=== PATIENT | female | born 1955 | race Caucasian/White ===

== ENCOUNTER 2017-11-21 08:01 | Day surgery (SDC) | payer BC | END 2017-11-22 22:41 | disposition home or self-care (01) | LOC: MOI US 08:01 | PROC: 0HBT3ZX Excision of Right Breast, Percutaneous Approach, Diagnostic (ICD-10-PCS; principal; 2017-11-21) | DX: N60.01 Solitary cyst of right breast (principal) | CPT/HCPCS: 19083; 77065; 88305 ==

== ENCOUNTER → 2017-12-11 | Outpatient (CLI) | payer BC ==
[2017-12-14 09:27] LABS: HPV Genotype 16 Not Detected (NOTDET); HPV Genotype 18 Not Detected (NOTDET); HPV High Risk Other Not Detected (NOTDET)
== END | disposition home or self-care (01) ==
LOC: OLS 16:05
PROVIDERS: Nurse Practitioner Women's Health
DX: Z12.4 Encounter for screening for malignant neoplasm of cervix (principal); Z91.89 Other specified personal risk factors, not elsewhere classified
CPT/HCPCS: 87624; G0123

== ENCOUNTER → 2018-12-14 | Outpatient (CLI) | payer BC ==
[2018-12-16 14:08] LABS: HPV 16 Negative (Negative); HPV 18 Negative (Negative); HPV OTHER HR TYPES Negative (Negative)
== END ==
LOC: LAB SHORT 12:23 → LAB 12:23
PROVIDERS: Nurse Practitioner Women's Health
DX: Z12.4 Encounter for screening for malignant neoplasm of cervix (principal); Z91.89 Other specified personal risk factors, not elsewhere classified
CPT/HCPCS: 87624; G0123

== ENCOUNTER 2023-02-20 08:27 | Day surgery (SDC) | payer BC ==
[~2023-02-20] VITALS: Ht 162.6 cm; Wt 57.2 kg
[2023-02-20] MEDS ORDERED: LEVSOD75 (08:56)
[2023-02-20] MEDS ORDERED: Naltrexone HCl50 MG (08:56)
[2023-02-20] MEDS ORDERED: EUTHYROX50 MCG (08:56)
[2023-02-20 12:24] VITALS: BP 101/65
== END 2023-02-20 10:40 | disposition home or self-care (01) ==
LOC: ORSCSDS 08:27
PROVIDERS: Student in an Organized Health Care Education/Training Program
PROC: 0DBK8ZX Excision of Ascending Colon, Via Natural or Artificial Opening Endoscopic, Diagnostic (ICD-10-PCS; principal; 2023-02-20 09:30)
PROC: 0DBH8ZX Excision of Cecum, Via Natural or Artificial Opening Endoscopic, Diagnostic (ICD-10-PCS; principal; 2023-02-20 09:30)
DX: R10.31 Right lower quadrant pain (principal); D12.0 Benign neoplasm of cecum; D12.2 Benign neoplasm of ascending colon; K63.89 Other specified diseases of intestine; K64.8 Other hemorrhoids; E03.9 Hypothyroidism, unspecified; G47.33 Obstructive sleep apnea (adult) (pediatric); E78.5 Hyperlipidemia, unspecified; Z79.899 Other long term (current) drug therapy
CPT/HCPCS: 88305; J2704; J7120